=== PATIENT | male | born 1965 | race Caucasian/White ===

== ENCOUNTER → 2018-12-09 08:41 | Outpatient (CLI) | payer OTHER, SELFPAY ==
[2018-12-09 11:04] LABS: Add Manual Diff / Slide Review NO; Basophils Absolute Auto 0 /uL (0-100); Basophils Percent Auto 0.7 % (0-2); Eosinophils Absolute Auto 100 /uL (0-450); Hematocrit 43.2 % (41-53); Lymphocytes Absolute Auto 1500 /uL (1100-4500); Lymphocytes Percent Auto 27.1 % (25-40); Mean Corpuscular HGB Conc 34.8 % (30-36); Mean Corpuscular Hemoglobin 29.8 PG (26-34); Mean Corpuscular Volume 85.8 fL (80-100); Monocytes Absolute Auto 600 /uL (0-900); Monocytes Percent Auto 10.4 % (3-14); Neutrophils Absolute Auto 3400 /uL (1500-7000); Neutrophils Percent Auto 59.8 % (50-75); Platelet Count 299 X10^3/uL (150-400); Red Blood Cell Count 5.03 X10^6/uL (4.5-5.9); Red Cell Distribution Width 13.1 % (11.6-14.8); White Blood Cell Count 5.7 X10^3/uL (4.5-11.0)
[2018-12-09 11:16] LABS: Alanine Aminotransferase 23 IU/L (21-72); Albumin 4.6 g/dL (3.5-5.0); Albumin Globulin Ratio 1.6 (1.0-2.8); Alkaline Phosphatase 53 U/L (38-126); Aspartate Aminotransferase 19 IU/L (17-59); BUN Creatinine Ratio 21.4 (6-22); Bilirubin Total 0.9 mg/dL (0.2-1.3); Blood Urea Nitrogen 15 mg/dL (9-20); Calcium 9.6 mg/dL (8.4-10.2); Carbon Dioxide 27 mmol/L (22-32); Chloride 107 mmol/L (98-107); Cholesterol 202 mg/dL (140-199); Estimated Glomerular Filt Rate > 60.0 mL/min (>60); Globulin 2.9 g/dL (1.7-4.1); Glucose 95 mg/dL (70-100); HDL Cholesterol 58 mg/dL (40-60); HEMOLYSIS 15 (0-50); LDL Cholesterol Calculated 112 mg/dL (<100); Potassium 4.3 mmol/L (3.4-5.1); Sodium 143 mmol/L (137-145); Total Protein 7.5 g/dL (6.3-8.2); Triglycerides 162 mg/dL (35-150)
[2018-12-09 11:38] LABS: Prostate Specific Antigen Scrn 0.567 ng/mL (0.1-4.0); Thyroid Stimulating Hormone 1.01 uIU/mL (0.47-4.68)
== END ==
PROVIDERS: Family Provider Family Medicine; PCP Family Medicine; Visit Provider Family Medicine
DX: E78.2 Mixed hyperlipidemia (principal); I10 Essential (primary) hypertension; Z12.5 Encounter for screening for malignant neoplasm of prostate; Z13.1 Encounter for screening for diabetes mellitus; Z13.29 Encounter for screening for other suspected endocrine disorder; Z13.6 Encounter for screening for cardiovascular disorders
CPT/HCPCS: 36415; 80053; 80061; 84443; 85025; G0103

== ENCOUNTER → 2019-03-06 14:47 | Outpatient (CLI) | payer OTHER, SELFPAY | PROVIDERS: PCP Family Medicine | DX: Z23 Encounter for immunization (principal) | CPT/HCPCS: 90471; 90686 ==

== ENCOUNTER → 2019-03-25 06:59 | Outpatient (CLI) | payer OTHER, SELFPAY ==
[2019-03-25 09:00] LABS: Cholesterol 196 mg/dL (140-199); HDL Cholesterol 61 mg/dL (40-60); LDL Cholesterol Calculated 114 mg/dL (<100); Triglycerides 103 mg/dL (35-150)
== END ==
PROVIDERS: PCP Family Medicine; Visit Provider Family Medicine
DX: E78.2 Mixed hyperlipidemia (principal)
CPT/HCPCS: 36415; 80061

== ENCOUNTER → 2019-11-20 07:21 | Outpatient (CLI) | payer OTHER, SELFPAY ==
[2019-11-20 08:13] LABS: Add Manual Diff / Slide Review NO; Basophils Absolute Auto 0 /uL (0-100); Basophils Percent Auto 0.7 % (0-2); Eosinophils Absolute Auto 100 /uL (0-450); Hematocrit 41.4 % (41-53); Hemoglobin 14.6 g/dL (13.5-17.5); Lymphocytes Absolute Auto 1300 /uL (1100-4500); Lymphocytes Percent Auto 25.4 % (25-40); Mean Corpuscular HGB Conc 35.4 % (30-36); Mean Corpuscular Hemoglobin 31.3 PG (26-34); Mean Corpuscular Volume 88.4 fL (80-100); Monocytes Absolute Auto 600 /uL (0-900); Monocytes Percent Auto 11.9 % (3-14); Neutrophils Absolute Auto 3000 /uL (1500-7000); Platelet Count 219 X10^3/uL (150-400); Red Blood Cell Count 4.68 X10^6/uL (4.5-5.9); Red Cell Distribution Width 13.1 % (11.6-14.8)
[2019-11-20 08:46] LABS: Alanine Aminotransferase 24 IU/L (<50); Albumin 4.3 g/dL (3.5-5.0); Albumin Globulin Ratio 1.9 (1.0-2.8); Alkaline Phosphatase 42 U/L (38-126); Aspartate Aminotransferase 24 IU/L (17-59); BUN Creatinine Ratio 21.3 (6-22); Bilirubin Total 1.2 mg/dL (0.2-1.3); Blood Urea Nitrogen 16 mg/dL (9-20); Calcium 9.7 mg/dL (8.4-10.2); Carbon Dioxide 26 mmol/L (22-32); Chloride 107 mmol/L (98-107); Cholesterol 179 mg/dL (140-199); Estimated Glomerular Filt Rate > 60.0 mL/min (>60); Globulin 2.3 g/dL (1.7-4.1); Glucose 93 mg/dL (70-100); HDL Cholesterol 83 mg/dL (40-60); HEMOLYSIS < 15 (0-50); LDL Cholesterol Calculated 79 mg/dL (<100); Potassium 4.3 mmol/L (3.4-5.1); Sodium 139 mmol/L (137-145); Total Protein 6.6 g/dL (6.3-8.2); Triglycerides 85 mg/dL (35-150)
[2019-11-20 09:17] LABS: Prostate Specific Antigen Scrn 0.411 ng/mL (0.1-4.0)
== END ==
PROVIDERS: PCP Family Medicine; Referring Provider Family Medicine; Visit Provider Family Medicine
DX: Z12.5 Encounter for screening for malignant neoplasm of prostate (principal); E78.2 Mixed hyperlipidemia; I10 Essential (primary) hypertension
CPT/HCPCS: 36415; 80053; 80061; 85025; G0103

== ENCOUNTER → 2020-12-28 07:02 | Outpatient (CLI) | payer OTHER, SELFPAY ==
[2020-12-28 07:55] LABS: Add Manual Diff / Slide Review NO; Basophils Absolute Auto 100 /uL (0-100); Basophils Percent Auto 0.9 % (0-2); Eosinophils Absolute Auto 200 /uL (0-450); Eosinophils Percent Auto 2.8 % (2-4); Hematocrit 43.3 % (41-53); Hemoglobin 14.4 g/dL (13.5-17.5); Lymphocytes Absolute Auto 1500 /uL (1100-4500); Lymphocytes Percent Auto 26.1 % (25-40); Mean Corpuscular HGB Conc 33.3 % (30-36); Mean Corpuscular Hemoglobin 29.7 PG (26-34); Mean Corpuscular Volume 89.3 fL (80-100); Monocytes Absolute Auto 700 /uL (0-900); Monocytes Percent Auto 11.3 % (3-14); Neutrophils Absolute Auto 3500 /uL (1500-7000); Neutrophils Percent Auto 58.9 % (50-75); Platelet Count 215 X10^3/uL (150-400); Red Blood Cell Count 4.85 X10^6/uL (4.5-5.9); Red Cell Distribution Width 12.9 % (11.6-14.8); White Blood Cell Count 5.9 X10^3/uL (4.5-11.0)
[2020-12-28 08:16] LABS: Alanine Aminotransferase 21 IU/L (<50); Albumin 4.1 g/dL (3.5-5.0); Albumin Globulin Ratio 1.6 (1.0-2.8); Alkaline Phosphatase 42 U/L (38-126); Aspartate Aminotransferase 21 IU/L (17-59); BUN Creatinine Ratio 17.9 (6-22); Bilirubin Total 0.9 mg/dL (0.2-1.3); Blood Urea Nitrogen 15 mg/dL (9-20); Calcium 9.4 mg/dL (8.4-10.2); Carbon Dioxide 27 mmol/L (22-32); Chloride 109 mmol/L (98-107); Cholesterol 166 mg/dL (140-199); Estimated Glomerular Filt Rate > 60.0 mL/min (>60); Globulin 2.5 g/dL (1.7-4.1); Glucose 86 mg/dL (70-100); HDL Cholesterol 71 mg/dL (40-60); HEMOLYSIS < 15 (0-50); LDL Cholesterol Calculated 73 mg/dL (<100); Potassium 3.8 mmol/L (3.4-5.1); Sodium 141 mmol/L (137-145); Total Protein 6.6 g/dL (6.3-8.2); Triglycerides 108 mg/dL (35-150)
[2020-12-28 08:49] LABS: Prostate Specific Antigen Scrn 0.338 ng/mL (0.1-4.0)
[2020-12-28 08:52] LABS: TSH w/ Reflex to FT4 2.75 uIU/mL (0.47-4.68)
[2020-12-28 08:54] LABS: Microalbumin Urine Random < 0.6 mg/dL (0-1.6)
== END ==
PROVIDERS: PCP Family Medicine; Referring Provider Family Medicine; Visit Provider Family Medicine
DX: E78.2 Mixed hyperlipidemia (principal); I10 Essential (primary) hypertension; Z12.5 Encounter for screening for malignant neoplasm of prostate
CPT/HCPCS: 36415; 80053; 80061; 82043; 82570; 84443; 85025; G0103

== ENCOUNTER → 2022-01-23 06:42 | Outpatient (CLI) | payer OTHER, SELFPAY ==
[2022-01-23 08:32] LABS: Add Manual Diff / Slide Review NO; Basophils Absolute Auto 0 /uL (0-100); Basophils Percent Auto 0.7 % (0-2); Eosinophils Absolute Auto 100 /uL (0-450); Eosinophils Percent Auto 2.9 % (2-4); Hematocrit 41.2 % (41-53); Hemoglobin 14.3 g/dL (13.5-17.5); Lymphocytes Absolute Auto 1400 /uL (1100-4500); Lymphocytes Percent Auto 26.4 % (25-40); Mean Corpuscular HGB Conc 34.6 % (30-36); Mean Corpuscular Hemoglobin 30.4 PG (26-34); Mean Corpuscular Volume 87.8 fL (80-100); Monocytes Absolute Auto 600 /uL (0-900); Monocytes Percent Auto 11.5 % (3-14); Neutrophils Absolute Auto 3100 /uL (1500-7000); Neutrophils Percent Auto 58.5 % (50-75); Platelet Count 206 X10^3/uL (150-400); Red Cell Distribution Width 13.2 % (11.6-14.8); White Blood Cell Count 5.2 X10^3/uL (4.5-11.0)
[2022-01-23 10:29] LABS: Alanine Aminotransferase 19 IU/L (<50); Albumin 3.9 g/dL (3.5-5.0); Albumin Globulin Ratio 1.7 (1.0-2.8); Alkaline Phosphatase 42 U/L (38-126); Aspartate Aminotransferase 21 IU/L (17-59); BUN Creatinine Ratio 15.9 (6-22); Bilirubin Total 1.4 mg/dL (0.2-1.3); Blood Urea Nitrogen 13 mg/dL (9-20); Calcium 8.6 mg/dL (8.4-10.2); Carbon Dioxide 28 mmol/L (22-32); Chloride 108 mmol/L (98-107); Cholesterol 160 mg/dL (140-199); Estimated Glomerular Filt Rate > 60 mL/min (>60); Globulin 2.3 g/dL (1.7-4.1); Glucose 83 mg/dL (70-100); HDL Cholesterol 72 mg/dL (40-60); HEMOLYSIS < 15 (0-50); LDL Cholesterol Calculated 77 mg/dL (<100); Potassium 3.8 mmol/L (3.4-5.1); Sodium 142 mmol/L (137-145); Total Protein 6.2 g/dL (6.3-8.2); Triglycerides 55 mg/dL (35-150)
[2022-01-23 10:57] LABS: Prostate Specific Antigen Scrn 1.25 ng/mL (0.1-4.0)
[2022-01-23 10:58] LABS: TSH w/ Reflex to FT4 1.66 uIU/mL (0.47-4.68)
[2022-01-23 12:02] LABS: Creatinine Urine Random 134.5 mg/dL
[2022-01-23 12:06] LABS: Microalbumi Creatinin Ratio Ur 5.9 ug/mg CR (<30); Microalbumin Urine Random 0.8 mg/dL (0-1.6)
== END ==
PROVIDERS: PCP Family Medicine; Referring Provider Family Medicine; Visit Provider Family Medicine
DX: E78.2 Mixed hyperlipidemia (principal); I10 Essential (primary) hypertension; Z12.5 Encounter for screening for malignant neoplasm of prostate
CPT/HCPCS: 36415; 80053; 80061; 82043; 82570; 84443; 85025; G0103

== ENCOUNTER → 2022-02-15 06:52 | Outpatient (CLI) | payer OTHER, SELFPAY ==
[2022-02-15 08:55] LABS: Bilirubin Direct 0.2 mg/dL (0.0-0.4); Bilirubin Total 1.5 mg/dL (0.2-1.3)
== END ==
PROVIDERS: PCP Family Medicine; Referring Provider Family Medicine; Visit Provider Family Medicine
DX: E78.2 Mixed hyperlipidemia (principal); E80.6 Other disorders of bilirubin metabolism; I10 Essential (primary) hypertension
CPT/HCPCS: 36415; 82247; 82248

== ENCOUNTER 2022-05-18 12:18 | Emergency (ER) | payer OTHER, SELFPAY ==
[2022-05-18] VITALS (8 sets, daily range): BP systolic 107–129; BP diastolic 62–83; PULSE 59–77; RESP 14–18; TEMP 35.8; O2SAT 96–99; BMI 30.8
--- NOTE | 2022-05-18 12:27 | DI.RAD.S_ITS ---
PROCEDURE: XR CHEST 1V INDICATIONS: chest pain TECHNIQUE: One view of the chest was acquired. COMPARISON: [facility], , CHEST 2 VIEW, 08/31/2015, 12:56. FINDINGS: Surgical changes and devices: None. Lungs and pleura: Lungs are clear. No pleural effusions or pneumothorax. Mediastinum: Mediastinal contours appear normal. Heart size is normal. Bones and chest wall: No suspicious bony lesions. Overlying soft tissues appear unremarkable. IMPRESSION: No acute cardiopulmonary findings. Dictated by: Kat Cline M.D. on 05/18/2022 at 13:48 Approved by: Kat Cline M.D. on 05/18/2022 at 13:48
[2022-05-18 13:05] LABS: Add Manual Diff / Slide Review NO; Basophils Absolute Auto 0 /uL (0-100); Basophils Percent Auto 0.6 % (0-2); Eosinophils Absolute Auto 0 /uL (0-450); Eosinophils Percent Auto 0.2 % (2-4); Hematocrit 45.2 % (41-53); Hemoglobin 15.4 g/dL (13.5-17.5); Lymphocytes Absolute Auto 1200 /uL (1100-4500); Mean Corpuscular HGB Conc 34.1 % (30-36); Mean Corpuscular Hemoglobin 30.3 PG (26-34); Mean Corpuscular Volume 88.8 fL (80-100); Monocytes Absolute Auto 500 /uL (0-900); Monocytes Percent Auto 6.9 % (3-14); Neutrophils Absolute Auto 6000 /uL (1500-7000); Neutrophils Percent Auto 77.3 % (50-75); Platelet Count 266 X10^3/uL (150-400); Red Blood Cell Count 5.08 X10^6/uL (4.5-5.9); Red Cell Distribution Width 13.2 % (11.6-14.8); White Blood Cell Count 7.7 X10^3/uL (4.5-11.0)
[2022-05-18 13:09] LABS: Prothrombin Time 11.7 SECONDS (10.1-12.7)
[2022-05-18 13:12] LABS: PTT Partial Thromboplastin Tim 25 SECONDS (26-36)
[2022-05-18 13:16] LABS: Alanine Aminotransferase 26 IU/L (<50); Albumin 4.5 g/dL (3.5-5.0); Albumin Globulin Ratio 1.6 (1.0-2.8); Alkaline Phosphatase 56 U/L (38-126); Aspartate Aminotransferase 23 IU/L (17-59); BUN Creatinine Ratio 21.4 (6-22); Bilirubin Total 1.1 mg/dL (0.2-1.3); Blood Urea Nitrogen 15 mg/dL (9-20); Calcium 9.3 mg/dL (8.4-10.2); Carbon Dioxide 19 mmol/L (22-32); Chloride 108 mmol/L (98-107); Creatine Kinase 178 U/L (55-170); Estimated Glomerular Filt Rate > 60 mL/min (>60); Globulin 2.9 g/dL (1.7-4.1); Glucose 151 mg/dL (70-100); HEMOLYSIS < 15 (0-50); Lipase 42 U/L (23-300); Potassium 3.7 mmol/L (3.4-5.1); Sodium 137 mmol/L (137-145); Total Protein 7.4 g/dL (6.3-8.2)
[2022-05-18 13:27] LABS: Troponin I < 0.012 ng/mL (0.01-0.034)
[2022-05-18 13:31] LABS: CKMB % Relative Index 1.1 % (1.5-5.0); Creatine Kinase MB 1.91 ng/mL (<2.37)
--- NOTE | 2022-05-18 14:14 | ED_ITS ---
HPI - Dizziness General Chief Complaint: Dizziness Stated Complaint: Dizzy, Can't eat Time Seen by Provider: 05/18/22 14:14 Source: patient Mode of arrival: Ambulatory History of Present Illness HPI Narrative: 56-year-old male nonsmoker with history of hypertension and hyperlipidemia presents with his in the chief complaint of a significant dizziness that presented upon waking up this morning. He states that he had been in his normal state of health when he went to bed and denies any recent dizziness, nausea, vomiting, chest pain or shortness of breath. He has had no trauma or injuries. Denies any recent air travel or diving, he has had no upper respiratory complaints such as runny nose, sneezing or cough but does say he is had some issues with his right ear and a week or 2 [place] He states as soon as he rolled over this morning to get out of bed he felt extremely dizzy and states the room was spinning. He states that any time he turned his head or stood up he became profoundly dizzy and this lasted a minute or 2 once he remained still. His symptoms do seem to be a bit better now. Related Data Home Medications Medication Instructions Recorded Confirmed glucosamine 750 uq-[id number] tab PO 09/17/18 01/27/22 no.7 644 mg-vit N-[id number]-[id number] tablet Previous Rx's Medication Instructions Recorded amlodipine 5 mg tablet See Rx Instructions .Route 12/08/21 .COMPLEX #180 tabs atorvastatin 10 mg tablet See Rx Instructions .Route 12/08/21 .COMPLEX #90 tabs losartan 50 mg tablet See Rx Instructions .Route 12/08/21 .COMPLEX #90 tabs Allergies Allergy/AdvReac Type Severity Reaction Status Date / Time No Known Drug Allergies Allergy Verified 05/18/22 12:22 Review of Systems Review of Systems Narrative: GENERAL: Denies chills, fatigue, malaise, fever, sweats. HEENT: Denies sinus pain, ear pain, sore throat, difficulty swallowing, dizziness. RESPIRATORY: Denies dyspnea, cough, wheezing, hemoptysis, sputum. CARDIOVASCULAR: Denies chest pain, palpitations, orthopnea, edema, GASTROINTESTINAL: Denies nausea, vomiting, abdominal pain, diarrhea, constipation, melena. : Denies dysuria, frequency, incontinence, hematuria, urinary retention. MUSCULOSKELETAL: denies weakness, joint pain, or bony pain SKIN: Denies rash, skin lesions, or other NEUROLOGIC: See HPI PSYCHIATRIC: No concerning psychosocial issues. 12 point review of systems is negative except for those stated above Patient History Medical History (Updated 05/18/22 @ 16:19 by Chavo Granados DO) Hyperbilirubinemia Surgical History History of vasectomy Family History Father Hypertension Grandfather Prostate ca Grandmother Stroke Social History Smoking Status: Never smoker alcohol intake: current substance use type: does not use Smoking Status: Never smoker alcohol intake frequency: holidays/special occasions only Substance Use Type: does not use Exam Narrative Exam Narrative: GENERAL: [56] year old patient appears stated age. Well-developed patient, in mild distress. HEAD: Atraumatic. Normocephalic. EYES: Pupils equal round and reactive. Extraocular motions intact. No scleral icterus. No injection or drainage. No obvious nystagmus ENT: Nose without bleeding, purulent drainage. Throat without erythema, tonsillar hypertrophy or exudate. Airway patent. NECK: Trachea midline. Non tender CARDIOVASCULAR: Regular rate and rhythm without murmurs, gallops, or rubs. RESPIRATORY: Clear to auscultation. Breath sounds equal bilaterally. No wheezes, rales, or rhonchi. GASTROINTESTINAL: Abdomen soft, non-tender, nondistended. EXTREMITIES: No edema or joint tenderness. BACK: Nontender without deformity or crepitance. No flank tenderness. NEURO: AOx3. SKIN: No rash or erythema of visible areas NIH Stroke Scale 1a. LOC: Patient is alert and keenly responsive (0) 1b. LOC Questions: Patient answers both LOC questions accurately (0) 1c. LOC Commands: Patient performs both tasks correctly (0) 2. Best Gaze: Normal (0) 3. Visual: No visual loss (0) 4. Facial palsy: Normal symmetrical movements (0) 5. Motor arm: No drift (0) 6. Motor leg: No drift (0) 7. Limb ataxia: Absent (0) 8. Sensory: Normal (0) 9. Best language: No aphasia; normal (0) 10. Dysarthria: Normal (0) 11. Extinction and inattention: No abnormality (0) NIHSS: 0 Initial Vital Signs Initial Vital Signs: Vital Signs Temperature 96.5 F L 05/18/22 12:22 Pulse Rate 70 05/18/22 12:22 Respiratory Rate 15 05/18/22 12:22 Blood Pressure 114/73 05/18/22 12:22 Pulse Oximetry 98 05/18/22 12:22 Oxygen Delivery Method 05/18/22 12:22 Course Orders Ordered: Discontinued Medications Meclizine HCl (Meclizine Hcl 12.5 Mg Tablet) 50 mg PO NOW ONE Stop: 05/18/22 14:36 Last Admin: 05/18/22 14:39 Dose: 50 mg Documented By: JAZZ Vital Signs Vital signs: Vital Signs - 8 hr 05/18/22 12:22 05/18/22 13:26 05/18/22 13:30 Temperature 96.5 F L Pulse Rate 70 63 Respiratory Rate 15 14 Blood Pressure 114/73 107/62 Pulse Oximetry 98 97 Oxygen Delivery Method Room Air 05/18/22 13:30 05/18/22 14:00 05/18/22 14:00 Temperature Pulse Rate 63 64 Respiratory Rate 14 15 Blood Pressure 112/68 Pulse Oximetry 96 99 Oxygen Delivery Method 05/18/22 14:30 05/18/22 14:30 05/18/22 15:00 Temperature Pulse Rate 77 Respiratory Rate 18 Blood Pressure 129/83 122/76 Pulse Oximetry 99 Oxygen Delivery Method 05/18/22 15:00 05/18/22 15:30 05/18/22 15:30 Temperature Pulse Rate 59 L 63 Respiratory Rate 18 Blood Pressure 123/76 Pulse Oximetry 98 96 Oxygen Delivery Method 05/18/22 16:00 05/18/22 16:00 Temperature Pulse Rate 68 Respiratory Rate Blood Pressure 114/63 Pulse Oximetry 96 Oxygen Delivery Method MDM - Dizziness Lab Data Result diagrams: 05/18/22 12:30 05/18/22 12:30 Labs: Lab Results 05/18/22 05/18/22 05/18/22 Range/Units 12:30 12:30 12:30 WBC 7.7 (4.5-11.0) X10^3/uL RBC 5.08 (4.5-5.9) X10^6/uL Hgb 15.4 (13.5-17.5) g/dL Hct 45.2 (41-53) % MCV 88.8 (80-100) fL MCH 30.3 (26-34) PG MCHC 34.1 (30-36) % RDW 13.2 (11.6-14.8) % Plt Count 266 (150-400) X10^3/uL Neut % (Auto) 77.3 H (50-75) % Lymph % (Auto) 15.0 L (25-40) % [place] % (Auto) 6.9 (3-14) % Eos % (Auto) 0.2 L (2-4) % Baso % (Auto) 0.6 (0-2) % Neut # (Auto) 6000 (7262-5725) /uL Lymph # (Auto) 1200 (0245-8042) /uL [place] # (Auto) 500 (0-900) /uL Eos # (Auto) 0 (0-450) /uL Baso # (Auto) 0 (0-100) /uL PT 11.7 (10.1-12.7) SECONDS INR 1.0 (0.9-1.3) APTT 25 L (26-36) SECONDS Sodium 137 (137-145) mmol/L Potassium 3.7 (3.4-5.1) mmol/L Chloride 108 H (98-107) mmol/L Carbon Dioxide 19 L (22-32) mmol/L BUN 15 (9-20) mg/dL Creatinine 0.70 (0.66-1.25) mg/dL Estimated GFR > 60 (>60) mL/min BUN/Creatinine Ratio 21.4 (6-22) Glucose 151 H (70-100) mg/dL Calcium 9.3 (8.4-10.2) mg/dL Magnesium 2.0 (1.6-2.3) mg/dL Total Bilirubin 1.1 (0.2-1.3) mg/dL AST 23 (17-59) IU/L ALT 26 (<50) IU/L Alkaline Phosphatase 56 (38-126) U/L Total Creatine Kinase 178 H (55-170) U/L CK-MB (CK-2) 1.91 (<2.37) ng/mL CK-MB (CK-2) Rel Index 1.1 L (1.5-5.0) % Troponin I < 0.012 (0.01-0.034) ng/mL Total Protein 7.4 (6.3-8.2) g/dL Albumin 4.5 (3.5-5.0) g/dL Globulin 2.9 (1.7-4.1) g/dL Albumin/Globulin Ratio 1.6 (1.0-2.8) Lipase 42 (23-300) U/L Point of Care Testing Glucose POC 146 MDM Narrative Medical decision making narrative: [48-year-old male nonsmoker with history of hypertension hyperlipidemia presents with reproducible dizziness] Multiple etiologies for patient's symptoms considered including, but not limited to: [Peripheral vertigo, electrolyte abnormality, arrhythmia, stroke] Prior Charts reviewed: From PCP Labs reviewed and interpreted by myself: No specific abnormalities that would require intervention Patient's symptoms improved over duration of stay with above-stated therapies. Patient with significant reproducible vertigo that is fatigable. Improved with meclizine. Able to ambulate through the department without difficulties. Remainder of history and physical exam very reassuring Findings and discharge diagnosis discussed with patient/family followed by verbalization of understanding Return precautions discussed with patient/family whom verbalize understanding of diagnosis and plan Discharge Plan Departure Patient Disposition: Home Clinical Impression: Peripheral positional vertigo Instructions: DI for Vertigo Activity Restrictions/Additional Instructions: *You have been diagnosed with [dizziness, likely peripheral vertigo. As we discussed your history, physical exam, labs and response to therapies is very reassuring] *What to do: *Please continue to take your regular medications as directed. [ x] New medication prescriptions sent to your pharmacy: [[facility] ] [ ] New medication written as a paper prescription [ ] No new medications given *Please follow up with your primary care provider in 2-3 days, call for an appointment. Let them know you were seen in the Emergency Department and that we ask that you be seen in follow up. We will electronically transmit a record of today's note if your PCP is in our system *Return to Emergency Department if you should have any new, worsening or concerning symptoms, such as [fever greater than 101 F, shaking chills, worsening pain, persistent vomiting or other bothersome symptoms] Prescriptions: No Action losartan 50 mg tablet See Rx Instructions .ROUTE .COMPLEX Qty: 90 2RF Dose Instruction: take 1 tablet by mouth once daily Rx Instructions: take 1 tablet by mouth once daily amlodipine 5 mg tablet See Rx Instructions .ROUTE .COMPLEX Qty: 180 2RF Dose Instruction: take 1 tablet by mouth twice a day Rx Instructions: take 1 tablet by mouth twice a day atorvastatin 10 mg tablet See Rx Instructions .ROUTE .COMPLEX Qty: 90 2RF Dose Instruction: take 1 tablet by mouth once daily Rx Instructions: take 1 tablet by mouth once daily [id number] [id number] mg tablet PO Referrals: Liam Mendez MD [Primary Care Provider] - Visit Report Forms: Patient Portal/API
[2022-05-18] MEDS: MECLIZINE HCL 12.5 MG TABLET 50 MG PO (14:39)
--- NOTE | 2022-05-18 16:07 | PC.NURSE ---
Pt given pudding and apple juice. Denies feeling nauseous at this time. Physician aware.
== END 2022-05-18 16:27 | disposition home or self-care (01) ==
PROVIDERS: Emergency Provider Emergency Medicine; PCP Family Medicine
DX: H81.399 Other peripheral vertigo, unspecified ear (principal)
CPT/HCPCS: 36415; 71045; 80053; 82550; 82553; 83690; 83735; 84484; 85025; 85610; 85730; 99283

== ENCOUNTER → 2022-12-26 14:00 | Outpatient (CLI) | payer OTHER, MEDICAID, SELFPAY ==
--- NOTE | 2022-12-26 14:01 | DI.RAD.S_ITS ---
PROCEDURE: XR KNEE LT 3V INDICATIONS: chronic left knee pain TECHNIQUE: 3 views of the knee were acquired. COMPARISON: None. FINDINGS: Bones: No fractures or dislocations. No suspicious bony lesions. Tricompartmental knee joint space narrowing with periarticular osteophyte formation, severe involving the medial femorotibial joint. Soft tissues: No significant joint effusion. No suspicious soft tissue calcifications. IMPRESSION: Tricompartmental knee joint degeneration, severe involving the medial femorotibial joint. Dictated by: Demarcus Pastrana [facility] Interpreted: Fam Crenshaw MD on 12/26/2022 at 14:15 Transcribed by: POOL on 12/26/2022 at 14:15 Approved by: Fam Crenshaw M.D. on 12/26/2022 at 21:01
== END ==
PROVIDERS: PCP Family Medicine; Referring Provider Family Medicine; Visit Provider Family Medicine
DX: M25.562 Pain in left knee (principal); M17.12 Unilateral primary osteoarthritis, left knee
CPT/HCPCS: 73562

== ENCOUNTER 2023-01-10 09:00 | Outpatient (RCR) | payer OTHER, MEDICAID, SELFPAY ==
--- NOTE | 2023-01-03 13:34 | PT.OIE ---
Current Diagnoses Pain in left knee (01/03/23) Past Medical History (Last Updated 01/27/22 @ 09:45 by Liam Mendez MD) Hyperbilirubinemia Past Surgical History (Last Reviewed 09/26/21 @ 13:26 by Rakel Barnes MD) History of vasectomy Visit Care Team Role Provider Type Liam Mendez MD Attending Provider Physician Family Provider Primary Care Provider Referring Provider Specialty: Family Practice Address: [address] [place] [address], [facility] Email: [email or web address] Physical Therapy Initial Evaluation PT-OP-A Visit Information Start: 01/03/23 09:54 Freq: Status: Active Protocol: Document 01/03/23 12:58 ED (Rec: 01/03/23 13:34 ED [id number]) Out-Patient Physical Therapy Visit Information Visit Information Visit Type Initial Evaluation Visit Note 06/15 Visit Start Time 10:00 Visit Stop Time 10:45 Total Visit Minutes 45 Visit Number 1 Number of [employer] HISTORY PROFESSOR Visits 0 Evaluation Information Evaluation Date 01/03/23 PT-OP-B Current Condition Start: 01/03/23 09:54 Freq: Status: Active Protocol: Document 01/03/23 12:58 ED (Rec: 01/03/23 13:34 ED [id number]) Current Condition History of Current Condition Onset Date ~1 year Current Complaints L knee pain History of Current Condition chronic L knee pain c/ no JEANETH or trauma PT-OP-C Subjective Start: 01/03/23 09:54 Freq: Status: Active Protocol: Document 01/03/23 12:58 ED (Rec: 01/03/23 13:34 ED [id number]) OP-PT Subjective Patient Comments Patient Comments Pt states that he has had L knee pain for ~1 year that just hasn't gone away. States that he is an avid bike rider and used to hike frequently however he has had to make activity modifications d/t knee pain. He notes that his knee feels better when he does some activity. It gets really stiff when he has been sitting for prolonged periods. Descending stairs is challenging and painful for him. Patient Reported Progress Same Patient Questionnaires Lower Extremity Functional Scale LEFS Score 50/80 LEFS Impairment 20 to 39% Impaired (Score 48- 62) OP-PT Pain Assessment Location L knee Pain Location Details around L knee; not focal to particular location Intensity 3 Scale Used Numeric (0 - 10) Description Chronic Frequency Frequent Pain Aggravating Factors Position,Sitting,Stair Climbing PT-OP-K Range of Motion Start: 01/03/23 09:54 Freq: Status: Active Protocol: Document 01/03/23 12:58 ED (Rec: 01/03/23 13:34 ED [id number]) Knee Goniometric Range of Motion Knee Right Knee ROM WFL Yes Patient Position Supine Flexion Active (degrees) 135 Extension Passive (degrees) 0 Left Patient Position Supine Flexion Active (degrees) 115 Extension Passive (degrees) 8 Comments lacking 5-10 degrees extension PT-OP-Q Treatments Start: 01/03/23 09:54 Freq: Status: Active Protocol: Document 01/03/23 12:58 ED (Rec: 01/03/23 13:34 ED [id number]) Therapeutic Exercises Supine Exercises bridge Side bilateral Reps/Minutes 3x10 Comments various knee angles knee flexion stretch Supine Exercise Name heel slides Side left Reps/Minutes x10-15 5'' hold knee ext stretch Supine Exercise Name low load long duration ext stretch Side left Reps/Minutes x5' Standing Exercises heel raise Standing Exercise Name single leg Reps/Minutes x10-15 TKE Side left Equipment Used GTB Reps/Minutes x10 5'' hold wall squat Standing Exercise Name isometric Side bilateral Reps/Minutes x30'' Neuro Re-Education Treatment Balance Activities SL balance Details dynamic fwd/bkwd toe taps Reps/Duration x10 each way Comments no UE support PT-OP-T Assessment and Plan Start: 01/03/23 09:54 Freq: Status: Active Protocol: Document 01/03/23 12:58 ED (Rec: 01/03/23 13:34 ED [id number]) Physical Therapy Assessment Rehab Potential Rehabilitation Potential Good Evaluation Complexity Number of Personal Factors/Comorbidities 1-2 Number of Body Systems Impaired 1-2 Clinical Presentation at Evaluation Stable Impairments Impairments Balance,Functional Activities, Functional Mobility,Gait,Pain, ROM,Strength Goals Three Impairment LEFS [facility] Goal (LTG) Pt will improve LEFS by 9 points to >57. LTG Duration 6 weeks Two Impairment pain Short Term Goal (STG) Pt will report 15% improvement in L knee pain during recreational activities. STG Duration 2 weeks Marketing Senior Recruiter Goal (LTG) Pt will report 50% improvement in L knee pain during recreational activities. LTG Duration 6 weeks One Impairment ROM Short Term Goal (STG) Pt will achieve 0 degrees knee extension and 130 degrees knee flexion of L knee c/ pain <2/10. STG Duration 2 weeks Group Home Goal (LTG) Pt will have equal ROM for L and R knee c/o pain. LTG Duration 6 weeks Assessment Summary Assessment Pt reported to PT c/ complaints of chronic L knee pain c/o a clear JEANETH. Pt reported pain as diffuse around his L knee and had no specific pain location that he could recall. Pt demonstrated reduced ROM of L knee for both flexion and extension. Additionally, patient appeared to have min-mod atrophy of L quad and L plantarflexors. Pt stated that he has many plans in the upcoming months and his ability to report to PT will be very limited in a few weeks . PT provided patient c/ initial HEP of : wall squats, low load long duration extension stretch, knee flexion stretch, SL heel raises, TKE, bridges, and dynamic SL balance movements. Pt able to do all exercises today c/o pain and reported his knee feeling better at conclusion of PT. Physical Therapy Plan Frequency and Duration Frequency of Treatment 2x/Week Duration of treatment (weeks) 6 Plan of Care Start Date 01/03/23 Plan of Care End Date 04/03/23 Therapeutic Interventions Therapeutic Interventions Aquatic Therapy,Balance Training,Home Exercise Program ,Joint Mobilizations,Manual Therapy,Neuromuscular Re- education,Soft Tissue Mobilization,Taping, Therapeutic Activities, Therapeutic Exercises Modalities Biofeedback,Cold Pack/Ice Massage,Electric Stimulation, Hot Packs,Ultrasound Next Visit Focus/Plan Next Note Type Treatment Note Next Visit Plan bike, HEP review (wall sits, TKE, heel raise, SL balance, bridge, knee ext/flex stretch) , LAQ, split squat isometric
--- NOTE | 2023-01-03 13:34 | PT.OPPOC ---
Physical, Occupational & Speech Therapy At [facility] Current Diagnoses Pain in left knee (01/03/23) Visit Care Team Role Provider Type Liam Mendez MD Attending Provider Physician Family Provider Primary Care Provider Referring Provider Specialty: Family Practice Address: [address] [place] [address], [id number] Email: [email or web address] Plan Of Care PT-OP-T Assessment and Plan Start: 01/03/23 09:54 Freq: Status: Active Protocol: Document 01/03/23 12:58 ED (Rec: 01/03/23 13:34 ED [id number]) Physical Therapy Assessment Rehab Potential Rehabilitation Potential Good Evaluation Complexity Number of Personal Factors/Comorbidities 1-2 Number of Body Systems Impaired 1-2 Clinical Presentation at Evaluation Stable Impairments Impairments Balance,Functional Activities, Functional Mobility,Gait,Pain, ROM,Strength Goals Three Impairment LEFS [facility] Goal (LTG) Pt will improve LEFS by 9 points to >57. LTG Duration 6 weeks Two Impairment pain Short Term Goal (STG) Pt will report 15% improvement in L knee pain during recreational activities. STG Duration 2 weeks [facility] Goal (LTG) Pt will report 50% improvement in L knee pain during recreational activities. LTG Duration 6 weeks One Impairment ROM Short Term Goal (STG) Pt will achieve 0 degrees knee extension and 130 degrees knee flexion of L knee c/ pain <2/10. STG Duration 2 weeks Drying Machine Receiver Goal (LTG) Pt will have equal ROM for L and R knee c/o pain. LTG Duration 6 weeks Assessment Summary Assessment Pt reported to PT c/ complaints of chronic L knee pain c/o a clear JEANETH. Pt reported pain as diffuse around his L knee and had no specific pain location that he could recall. Pt demonstrated reduced ROM of L knee for both flexion and extension. Additionally, patient appeared to have min-mod atrophy of L quad and L plantarflexors. Pt stated that he has many plans in the upcoming months and his ability to report to PT will be very limited in a few weeks . PT provided patient c/ initial HEP of : wall squats, low load long duration extension stretch, knee flexion stretch, SL heel raises, TKE, bridges, and dynamic SL balance movements. Pt able to do all exercises today c/o pain and reported his knee feeling better at conclusion of PT. Physical Therapy Plan Frequency and Duration Frequency of Treatment 2x/Week Duration of treatment (weeks) 6 Plan of Care Start Date 01/03/23 Plan of Care End Date 04/03/23 Therapeutic Interventions Therapeutic Interventions Aquatic Therapy,Balance Training,Home Exercise Program ,Joint Mobilizations,Manual Therapy,Neuromuscular Re- education,Soft Tissue Mobilization,Taping, Therapeutic Activities, Therapeutic Exercises Modalities Biofeedback,Cold Pack/Ice Massage,Electric Stimulation, Hot Packs,Ultrasound Next Visit Focus/Plan Next Note Type Treatment Note Next Visit Plan bike, HEP review (wall sits, TKE, heel raise, SL balance, bridge, knee ext/flex stretch) , LAQ, split squat isometric Plan of Care Dates Plan of Care Start Date 01/03/23 Plan of Care End Date 04/03/23 Electronically Signed by: Alfonso Ojeda, PT 01/03/23 6141 If you are in agreement with this Plan of Care, please return a signed and dated copy. I have reviewed this Plan of Care and certify that the skilled therapy services above are required to meet the patient?s needs. Physician Signature Date Printed Name and Credentials Clinical Instructor Signature Printed Name and Credentials
--- NOTE | 2023-01-05 08:49 | PT.OTN ---
Current Diagnoses Pain in left knee (01/05/23) Physical Therapy Treatment Note PT-OP-A Visit Information Start: 01/03/23 09:54 Freq: Status: Active Protocol: Document 01/05/23 08:44 ED (Rec: 01/05/23 08:49 ED [id number]) Out-Patient Physical Therapy Visit Information Visit Information Visit Type Treatment Note Visit Note 07/16 Visit Start Time 08:05 Visit Stop Time 08:45 Total Visit Minutes 40 Visit Number 2 PT-OP-B Current Condition Start: 01/03/23 09:54 Freq: Status: Active Protocol: Document 01/03/23 12:58 ED (Rec: 01/03/23 13:34 ED [id number]) Current Condition History of Current Condition Onset Date ~1 year Current Complaints L knee pain History of Current Condition chronic L knee pain c/ no JEANETH or trauma PT-OP-C Subjective Start: 01/03/23 09:54 Freq: Status: Active Protocol: Document 01/05/23 08:44 ED (Rec: 01/05/23 08:49 ED [id number]) OP-PT Subjective Patient Comments Patient Comments Pt states he has been doing his HEP very regularly. Notes that the stair knee flexion stretch was the only one that was slightly uncomfortable for him. His knee pain is worse in weight bearing positions such as that one. Is still unsure of what his schedule looks like for the next few weeks and may not be able to come to any more appointments after next week. PT-OP-K Range of Motion Start: 01/03/23 09:54 Freq: Status: Active Protocol: Document 01/05/23 08:44 ED (Rec: 01/05/23 08:49 ED [id number]) Knee Goniometric Range of Motion Knee Left Patient Position Supine Flexion Active (degrees) 125 Extension Passive (degrees) 3 PT-OP-Q Treatments Start: 01/03/23 09:54 Freq: Status: Active Protocol: Document 01/05/23 08:44 ED (Rec: 01/05/23 08:49 ED [id number]) Cardio Equipment Treadmill Duration (Minutes) 5 Speed 1.5 Incline 1 Other retro RM at end of session Therapeutic Exercises Supine Exercises knee ext stretch Supine Exercise Name low load long duration ext stretch Side left Resistance 10# above knee Reps/Minutes x10' Sitting Exercises LAQ Resistance L3 Reps/Minutes x15 Comments R significantly easier than L Standing Exercises heel cord stretch Reps/Minutes 2x60'' TKE Side left Equipment Used BTB Reps/Minutes 2x10 5'' hold PT-OP-T Assessment and Plan Start: 01/03/23 09:54 Freq: Status: Active Protocol: Document 01/05/23 08:44 ED (Rec: 01/05/23 08:49 ED [id number]) Physical Therapy Assessment Assessment Summary Assessment Pt tolerated treatment well and had no complaints of discomfort during exercises. Pt improved knee extension ROM from -8 to -3 after low load long duration knee extension stretch. PT worked primarily on quads and knee extension movements such as TKE, LAQ, and retro TM. Physical Therapy Plan Frequency and Duration Frequency of Treatment 2x/Week Duration of treatment (weeks) 6 Plan of Care Start Date 01/03/23 Plan of Care End Date 04/03/23 Next Visit Focus/Plan Next Note Type Treatment Note Next Visit Plan bike, ext stretch, TKE, LAQ, staggered sit<>stand, retro TM , padilla step up? HEP (wall sits, TKE, heel raise, SL balance, bridge, knee ext/flex stretch), LAQ, split squat isometric
--- NOTE | 2023-01-10 09:53 | PT.OTN ---
Current Diagnoses Pain in left knee (01/10/23) Physical Therapy Treatment Note PT-OP-A Visit Information Start: 01/03/23 09:54 Freq: Status: Active Protocol: Document 01/10/23 09:47 ED (Rec: 01/10/23 09:53 ED [id number]) Out-Patient Physical Therapy Visit Information Visit Information Visit Type Treatment Note Visit Note 08/13 Visit Start Time 08:55 Visit Stop Time 09:45 Total Visit Minutes 50 Visit Number 3 PT-OP-B Current Condition Start: 01/03/23 09:54 Freq: Status: Active Protocol: Document 01/03/23 12:58 ED (Rec: 01/03/23 13:34 ED [id number]) Current Condition History of Current Condition Onset Date ~1 year Current Complaints L knee pain History of Current Condition chronic L knee pain c/ no JEANETH or trauma PT-OP-C Subjective Start: 01/03/23 09:54 Freq: Status: Active Protocol: Document 01/10/23 09:47 ED (Rec: 01/10/23 09:53 ED [id number]) OP-PT Subjective Patient Comments Patient Comments Pt notes that he did too much over the weekend and had more knee pain. States that he is very limited in walking distance/duration d/t knee pain and subsequent stiffness. States that this may be his last PT visit as he is likely going on a few road trips for the summer/fall. PT-OP-K Range of Motion Start: 01/03/23 09:54 Freq: Status: Active Protocol: Document 01/05/23 08:44 ED (Rec: 01/05/23 08:49 ED [id number]) Knee Goniometric Range of Motion Knee Left Patient Position Supine Flexion Active (degrees) 125 Extension Passive (degrees) 3 PT-OP-Q Treatments Start: 01/03/23 09:54 Freq: Status: Active Protocol: Document 01/10/23 09:47 ED (Rec: 01/10/23 09:53 ED [id number]) Cardio Equipment Treadmill Duration (Minutes) 8 Speed 1.5 Incline 1 Other retro RM at end of session; accumulating knee pain at .15 miles Therapeutic Exercises Supine Exercises knee ext stretch Supine Exercise Name low load long duration ext stretch Side left Resistance 10# above knee Reps/Minutes 3x5-6' Sitting Exercises LAQ Resistance L3 Reps/Minutes 2x15 Comments R significantly easier than L Standing Exercises heel cord stretch Reps/Minutes 3x60'' TKE Side left Equipment Used BTB Reps/Minutes 3x10 5'' hold PT-OP-T Assessment and Plan Start: 01/03/23 09:54 Freq: Status: Active Protocol: Document 01/10/23 09:47 ED (Rec: 01/10/23 09:53 ED [id number]) Physical Therapy Assessment Assessment Summary Assessment Pt started session with about -6 degrees knee extension. After low load long duration stretch, TKEs, and LAQ patient was able to achieve -1 to -3 degrees extension. No complaints of pain during exercises. Ended session c/ a retro TM walk for ~8 minutes which did result in knee stiffness/pain towards the end of the walk. Encouraged patient to perform his exercises for an additional 6- 12 weeks before seeking alternative care.
--- NOTE | 2023-02-06 09:46 | PT.OPDS ---
Current Diagnoses Pain in left knee (01/10/23) Visit Care Team Role Provider Type Liam Mendez MD Attending Provider Physician Family Provider Primary Care Provider Referring Provider Specialty: Family Practice Address: [address] [place] [address], [facility] Email: [email or web address] Visit Number Visit Number 3 Discharge Summary PT-OP-B Current Condition Start: 01/03/23 09:54 Freq: Status: Active Protocol: Document 01/03/23 12:58 ED (Rec: 01/03/23 13:34 ED [id number]) Current Condition History of Current Condition Onset Date ~1 year Current Complaints L knee pain History of Current Condition chronic L knee pain c/ no JEANETH or trauma PT-OP-C Subjective Start: 01/03/23 09:54 Freq: Status: Active Protocol: Document 01/10/23 09:47 ED (Rec: 01/10/23 09:53 ED [id number]) OP-PT Subjective Patient Comments Patient Comments Pt notes that he did too much over the weekend and had more knee pain. States that he is very limited in walking distance/duration d/t knee pain and subsequent stiffness. States that this may be his last PT visit as he is likely going on a few road trips for the summer/fall. PT-OP-K Range of Motion Start: 01/03/23 09:54 Freq: Status: Active Protocol: Document 01/05/23 08:44 ED (Rec: 01/05/23 08:49 ED [id number]) Knee Goniometric Range of Motion Knee Left Patient Position Supine Flexion Active (degrees) 125 Extension Passive (degrees) 3 PT-OP-T Assessment and Plan Start: 01/03/23 09:54 Freq: Status: Active Protocol: Document 02/06/23 09:44 ED (Rec: 02/06/23 09:46 ED [id number]) Physical Therapy Assessment Goals Three Impairment LEFS [employer]ustainable [employer] Consultant Goal (LTG) Pt will improve LEFS by 9 points to >57. LTG Duration 6 weeks Two Impairment pain Short Term Goal (STG) Pt will report 15% improvement in L knee pain during recreational activities. STG Duration 2 weeks- MET [employer]ustainable [employer] Consultant Goal (LTG) Pt will report 50% improvement in L knee pain during recreational activities. LTG Duration 6 weeks One Impairment ROM Short Term Goal (STG) Pt will achieve 0 degrees knee extension and 130 degrees knee flexion of L knee c/ pain <2/10. STG Duration 2 weeks - 75% MET [employer]ustainable Design Consultant Goal (LTG) Pt will have equal ROM for L and R knee c/o pain. LTG Duration 6 weeks Progress Towards Goals Progress Towards Goals Slow Progress - Other Assessment Summary Assessment PT called patient today to discuss his knee pain and about what he's observed regarding improvements. Pt has been unable to attend PT in the past month d/t being out of town and has been self managing for the past month. He states that he has found the bicycle and strengthening exercises very helpful. He continues to have knee locking after walking but now knows how to loosen it up after walking. Pt stated he could be discharged from PT at this time and will continue to do the exercises most days of the week. Physical Therapy Plan Discharge Physical Therapy Discharge Reasons Patient Request Discharge Comments patient out of town consistently in fall/winter
== END 2023-02-08 15:16 | disposition home or self-care (01) ==
LOC: PHYS 09:00
PROVIDERS: Absent Provider Family Medicine; Family Provider Family Medicine; PCP Family Medicine; Referring Provider Family Medicine; Visit Provider Family Medicine
DX: M25.562 Pain in left knee (principal)
CPT/HCPCS: 97110; 97161

== ENCOUNTER → 2023-01-30 08:20 | Outpatient (CLI) | payer OTHER, MEDICAID, SELFPAY ==
[2023-01-30 09:51] LABS: Add Manual Diff / Slide Review NO; Basophils Absolute Auto 100 /uL (0-100); Basophils Percent Auto 0.9 % (0-2); Eosinophils Absolute Auto 100 /uL (0-450); Eosinophils Percent Auto 2.2 % (2-4); Hematocrit 42.9 % (41-53); Lymphocytes Absolute Auto 1400 /uL (1100-4500); Lymphocytes Percent Auto 25.4 % (25-40); Mean Corpuscular HGB Conc 35.1 % (30-36); Mean Corpuscular Hemoglobin 30.8 PG (26-34); Mean Corpuscular Volume 87.7 fL (80-100); Monocytes Absolute Auto 600 /uL (0-900); Monocytes Percent Auto 10.2 % (3-14); Neutrophils Absolute Auto 3400 /uL (1500-7000); Neutrophils Percent Auto 61.3 % (50-75); Platelet Count 239 X10^3/uL (150-400); Red Blood Cell Count 4.89 X10^6/uL (4.5-5.9); Red Cell Distribution Width 12.8 % (11.6-14.8); White Blood Cell Count 5.5 X10^3/uL (4.5-11.0)
[2023-01-30 10:02] LABS: Hemoglobin A1C% w Est Avg Glu 4.9 % (4.0-6.0)
[2023-01-30 10:12] LABS: Alanine Aminotransferase 18 IU/L (<50); Albumin 4.3 g/dL (3.5-5.0); Albumin Globulin Ratio 1.9 (1.0-2.8); Alkaline Phosphatase 40 U/L (38-126); Aspartate Aminotransferase 17 IU/L (17-59); BUN Creatinine Ratio 15.9 (6-22); Bilirubin Total 1.6 mg/dL (0.2-1.3); Blood Urea Nitrogen 13 mg/dL (9-20); Calcium 9.4 mg/dL (8.4-10.2); Carbon Dioxide 25 mmol/L (22-32); Chloride 107 mmol/L (98-107); Cholesterol 176 mg/dL (140-199); Estimated Glomerular Filt Rate > 60 mL/min (>60); Globulin 2.3 g/dL (1.7-4.1); Glucose 91 mg/dL (70-100); HDL Cholesterol 68 mg/dL (40-60); HEMOLYSIS < 15 (0-50); LDL Cholesterol Calculated 87 mg/dL (<100); Sodium 139 mmol/L (137-145); Total Protein 6.6 g/dL (6.3-8.2); Triglycerides 106 mg/dL (35-150)
[2023-01-30 10:21] LABS: Creatinine Urine Random 223.6 mg/dL
[2023-01-30 10:24] LABS: Microalbumi Creatinin Ratio Ur 15.6 ug/mg CR (<30); Microalbumin Urine Random 3.5 mg/dL (0-1.6)
[2023-01-30 10:42] LABS: Prostate Specific Antigen Scrn 0.531 ng/mL (0.1-4.0)
[2023-01-30 10:46] LABS: TSH w/ Reflex to FT4 1.61 uIU/mL (0.47-4.68)
== END ==
PROVIDERS: Family Provider Family Medicine; PCP Family Medicine; Referring Provider Family Medicine; Visit Provider Family Medicine
DX: E78.2 Mixed hyperlipidemia (principal); I10 Essential (primary) hypertension; Z12.5 Encounter for screening for malignant neoplasm of prostate; R73.9 Hyperglycemia, unspecified
CPT/HCPCS: 36415; 80053; 80061; 82043; 82570; 83036; 84443; 85025; G0103

== ENCOUNTER → 2024-10-29 07:07 | Outpatient (CLI) | payer OTHER, SELFPAY ==
[2024-10-29 07:53] LABS: Add Manual Diff / Slide Review NO; Basophils Absolute Auto 0 /uL (0-100); Eosinophils Absolute Auto 100 /uL (0-450); Eosinophils Percent Auto 2.6 % (2-4); Hematocrit 42.3 % (41-53); Hemoglobin 14.5 g/dL (13.5-17.5); Lymphocytes Absolute Auto 1600 /uL (1100-4500); Lymphocytes Percent Auto 31.2 % (25-40); Mean Corpuscular HGB Conc 34.3 % (30-36); Mean Corpuscular Hemoglobin 30.8 PG (26-34); Mean Corpuscular Volume 89.8 fL (80-100); Monocytes Absolute Auto 600 /uL (0-900); Monocytes Percent Auto 11.2 % (3-14); Neutrophils Absolute Auto 2700 /uL (1500-7000); Platelet Count 223 X10^3/uL (150-400); Red Blood Cell Count 4.71 X10^6/uL (4.5-5.9); Red Cell Distribution Width 13.3 % (11.6-14.8)
[2024-10-29 08:16] LABS: Alanine Aminotransferase 16 IU/L (<50); Albumin 4.1 g/dL (3.5-5.0); Alkaline Phosphatase 42 U/L (38-126); Aspartate Aminotransferase 18 IU/L (17-59); BUN Creatinine Ratio 12.8 (6-22); Bilirubin Total 1.2 mg/dL (0.2-1.3); Blood Urea Nitrogen 11 mg/dL (9-20); Calcium 9.4 mg/dL (8.4-10.2); Carbon Dioxide 26 mmol/L (22-32); Chloride 110 mmol/L (98-107); Cholesterol 172 mg/dL (140-199); Estimated Glomerular Filt Rate > 60 mL/min (>60); Globulin 2.1 g/dL (1.7-4.1); Glucose 93 mg/dL (70-99); HDL Cholesterol 90 mg/dL (40-60); HEMOLYSIS < 15 (0-50); LDL Cholesterol Calculated 69 mg/dL (<100); Potassium 4.7 mmol/L (3.4-5.1); Sodium 141 mmol/L (137-145); Total Protein 6.2 g/dL (6.3-8.2); Triglycerides 67 mg/dL (35-150)
[2024-10-29 08:18] LABS: Creatinine Urine Random 133.79 mg/dL
[2024-10-29 08:37] LABS: Microalbumin Urine Random 0.6 mg/dL (0-1.6)
[2024-10-29 08:46] LABS: TSH w/ Reflex to FT4 1.27 uIU/mL (0.47-4.68)
[2024-10-29 08:47] LABS: Prostate Specific Antigen Scrn 0.452 ng/mL (0.1-4.0)
[2024-10-30 04:39] LABS: Apolipoprotein B 68 mg/dL (<90)
== END ==
PROVIDERS: Family Provider Family Medicine; PCP Family Medicine; Referring Provider Family Medicine; Visit Provider Family Medicine
DX: Z00.00 Encounter for general adult medical examination without abnormal findings (principal); M25.562 Pain in left knee; E80.6 Other disorders of bilirubin metabolism; I10 Essential (primary) hypertension; E78.2 Mixed hyperlipidemia; Z12.5 Encounter for screening for malignant neoplasm of prostate
CPT/HCPCS: 36415; 80053; 80061; 82043; 82172; 82570; 84443; 85025; G0103